=== PATIENT | female | born 1980 | race Caucasian/White ===

== ENCOUNTER → 2018-06-09 | Outpatient (CLI) | payer BC | LOC: BHSO 10:51 | DX: F33.0 Major depressive disorder, recurrent, mild (principal) ==

== ENCOUNTER → 2018-07-04 | Outpatient (CLI) | payer BC | LOC: BHSO 08:35 | DX: F33.1 Major depressive disorder, recurrent, moderate (principal) | CPT/HCPCS: G0463 ==

== ENCOUNTER → 2018-08-03 | Outpatient (CLI) | payer BC | LOC: BHSO 08:38 | DX: F41.1 Generalized anxiety disorder (principal) | CPT/HCPCS: G0463 ==

== ENCOUNTER → 2018-10-10 | Outpatient (CLI) | payer BC | LOC: BHSO 09:34 | DX: F41.1 Generalized anxiety disorder (principal) | CPT/HCPCS: G0463 ==

== ENCOUNTER → 2019-01-25 | Outpatient (CLI) | payer BC | LOC: BHSO 10:38 | DX: F33.41 Major depressive disorder, recurrent, in partial remission (principal) | CPT/HCPCS: G0463 ==

== ENCOUNTER → 2019-04-24 | Outpatient (CLI) | payer BC | LOC: BHSO 10:39 | DX: F33.42 Major depressive disorder, recurrent, in full remission (principal) | CPT/HCPCS: G0463 ==